=== PATIENT | female | born 1980 | race Two or more races ===

== ENCOUNTER 2021-09-20 14:10 | Emergency (ER) | payer OTHER ==
[~2021-09-20] VITALS: Ht 162.6 cm; Wt 86.2 kg
[2021-09-20 14:52] VITALS: BP 122/86
[2021-09-20] MEDS ORDERED: methylPREDNISolone SOD SUCC 125 MG/2 ML VL IM ONE (15:00)
[2021-09-20] MEDS ORDERED: LIDO2SOL23 MT (15:05)
[2021-09-20] MEDS ORDERED: METH4PAK PO (15:05)
== END 2021-09-20 15:33 | disposition home or self-care (01) ==
LOC: ER 14:10
DX: K14.6 Glossodynia (principal)
CPT/HCPCS: 96372; 99283; J2930